=== PATIENT | female | born 1980 | race Caucasian/White ===

== ENCOUNTER 2025-09-02 15:47 | Outpatient (CLI) | payer MEDICAID, SELFPAY ==
--- NOTE | 2025-09-02 16:30 | CRLHL7_ITS ---
For Patients: As a result of the Century Cures Act, medical imaging exams and procedure reports are released immediately into your electronic medical record. You may view this report before your referring provider. If you have questions, please contact your health care provider. INDICATION: Pulmonary embolism suspected. Elevated D-dimer, leg swelling, shortness of breath, pain in right shoulder blade area. History of metastatic thyroid cancer TECHNIQUE: CT chest PE was acquired with 95 cc Omnipaque 350 IV contrast. Coronal and MIP reconstructions were performed. COMPARISON: None. FINDINGS: Heart and vasculature: Contrast opacification of the pulmonary arterial tree is adequate. No sign of pulmonary embolism. Heart size is normal. Thoracic aorta and pulmonary artery are normal in caliber. Small pericardial effusion. Lungs and pleura: There are multiple small pulmonary nodules, including a 2 millimeter solid nodule in the right lower lobe (series 5, image 100). Mild subsegmental atelectasis. Trace bilateral pleural effusions. No pneumothorax. Lymph nodes/mediastinum: Few mildly prominent mediastinal lymph nodes. Chest wall: Few mildly prominent bilateral axillary lymph nodes. Upper abdomen: No acute or significant findings. Bones: No acute or suspicious osseous abnormality. IMPRESSION: 1. No evidence of pulmonary embolism. 2. Trace bilateral pleural effusions. 3. Scattered small pulmonary nodules, nonspecific in the setting of known malignancy. No prior chest imaging is available for comparison. Continued attention on follow-up per oncologic protocol. Please note that all CT scans at this facility use dose modulation, iterative reconstruction, and/or weight-based dosing when appropriate to reduce radiation dose to as low as reasonably achievable. Dictated by Tanna Rm MD @ 09/02/2025 4:52:20 PM (Electronically Signed)
== END 2025-09-02 15:48 | disposition home or self-care (01) ==
PROVIDERS: PCP Family Medicine; Visit Provider Family Medicine
DX: R79.89 Other specified abnormal findings of blood chemistry (principal); J90 Pleural effusion, not elsewhere classified; R91.8 Other nonspecific abnormal finding of lung field; R06.02 Shortness of breath; D53.9 Nutritional anemia, unspecified
CPT/HCPCS: 71275; Q9967